=== PATIENT | female | born 1945 | race Caucasian/White ===

== ENCOUNTER 2019-04-24 19:56 | Inpatient (IN) ==
[2019-04-24] MEDS ORDERED: PANTOPRAZOLE 40 MG VIAL IV STA (20:24)
[2019-04-24] MEDS ORDERED: ONDANSETRON 4 MG/2 ML VIAL IV STA (20:24)
[2019-04-24] MEDS ORDERED: SODIUM CHLORIDE 0.9% 1,000 ML IV STA (20:24)
[2019-04-24 20:46] LABS: Basophils % 0.4 % (0.0-0.8); Eosinophils # 0.2 10*3/uL (0.0-0.87); Eosinophils % 2.3 % (0.00-10.9); Hematocrit 25.7 VOL% (35.7-47.0); Hemoglobin 7.5 GM/DL (12.0-16.0); Immature Granulocytes % 0.6 %; Immature Granulocytes Absolute 0.04 #; Lymphocytes # 1.1 10*3/uL (1.4-4.0); Mean Corpuscular HGB Conc 29.2 GM/DL (32-36); Mean Corpuscular Volume 87.1 FL (87-102); Mean Platelet Volume 8.7 FL (9.6-12.0); Monocytes % 6.8 % (1.7-12.7); Neutrophils % 74.9 % (38.7-73.9); Platelet Count 231 T/CUMM (130-400); Red Blood Count 2.95 MC/CUMM (3.8-5.5); Red Cell Distribution Width 18.3 % (9.3-17.3); White Blood Count 7.1 T/CUMM (4-12)
[2019-04-24 20:58] LABS: PT Patient Result 11.2 SECS (9.6-12.2); Partial Thromboplastin Time 28.6 SECS (20.8-36.0)
[2019-04-24 21:15] LABS: Alanine Aminotransferase < 6 U/L (13-56); Alkaline Phosphatase 140 U/L (45-117); Aspartate Amino Transferase 4 U/L (0-37); Bilirubin,Total < 0.39 MG/DL (0.2-1.0); Blood Urea Nitrogen 43 MG/DL (7-18); Calcium 7.8 MG/DL (8.5-10.1); Estimated Glom Filtration Rate 25 ML/MIN; Glucose 134 MG/DL (74-106); Osmolality,Calculated 293.3 MOS/KG (273-304); Total Protein 5.5 G/DL (6.4-8.3); Troponin I < 0.015 NG/ML (0.00-0.045)
[2019-04-24 22:13] LABS: Apearance,Urine CLOUDY (Clear); Bacteria,Urine Many /HPF (Few); Bilirubin,Urine Negative (Negative); Blood, Urine Large mg/dL (Negative); Glucose,Urine (UA) Negative (Negative); Ketones,Urine Negative (Negative); Nitrite,Urine Positive (Negative); Protein,Urine 100 MG/DL; RBC,Urine 134 /HPF (0-4); Urine Color Yellow (Yellow); Urine Specific Gravity 1.013 (1.001-1.035); Urine Urobilinogen < 2.0 EU/DL (0.2-1.0); WBC,Urine 2583 /HPF (0-6)
[2019-04-24] MEDS ORDERED: DOXYCYCLINE HYCLATE INJ 100 MG in SODIUM CHLORIDE 0.9% 100 ML IV STA (22:19)
[2019-04-25] MEDS ORDERED: ONDANSETRON 4 MG/2 ML VIAL IV PRN (02:38)
[2019-04-25] MEDS ORDERED: SODIUM CHLORIDE 0.9% 1,000 ML IV PRN (02:38)
[2019-04-25 05:56] LABS: Alanine Aminotransferase < 6 U/L (13-56); Albumin 1.9 G/DL (3.4-5.0); Alkaline Phosphatase 132 U/L (45-117); Aspartate Amino Transferase 6 U/L (0-37); Bilirubin,Total < 0.39 MG/DL (0.2-1.0); Blood Urea Nitrogen 34 MG/DL (7-18); Calcium 7.9 MG/DL (8.5-10.1); Estimated Glom Filtration Rate 30 ML/MIN; Glucose 105 MG/DL (74-106); Osmolality,Calculated 299.4 MOS/KG (273-304); Total Protein 5.5 G/DL (6.4-8.3)
[2019-04-25] MEDS: PANTOPRAZOLE 40 MG TABLET PO SCH (09:57)
[2019-04-25] MEDS: DOXYCYCLINE HYCLATE INJ 100 MG in SODIUM CHLORIDE 0.9% 100 ML IV SCH ×2 (09:58→21:27)
[2019-04-26 07:19] LABS: Hematocrit 35.1 VOL% (35.7-47.0); Hemoglobin 10.7 GM/DL (12.0-16.0)
[2019-04-26 07:26] LABS: PT Patient Result 11.3 SECS (9.6-12.2)
[2019-04-26] MEDS ORDERED: LACTATED RINGERS 1,000 ML IV SCH (08:00)
[2019-04-26] MEDS ORDERED: MORPHINE 4 MG/1 ML VIAL IV ONE (08:54)
[2019-04-26] MEDS: PANTOPRAZOLE 40 MG TABLET PO SCH (09:08)
[2019-04-26] MEDS ORDERED: PROPOFOL 200 MG/20 ML VIAL IV ONE (10:00)
[2019-04-26] MEDS ORDERED: LIDOCAINE 2% 5 ML VIAL ONE (10:00)
[2019-04-26] MEDS: DOXYCYCLINE HYCLATE INJ 100 MG in SODIUM CHLORIDE 0.9% 100 ML IV SCH (13:29)
[2019-04-26 15:39] VITALS: BP 156/86
== END 2019-04-26 17:23 | DRG 394 ==
LOC: EDUNIT# → EDBD → N.ED 19:56 → N.EDINP 04-25 02:39 → N.3E 04-25 03:15
PROVIDERS: ADMIT Internal Medicine; ATTEND Internal Medicine

== ENCOUNTER 2019-05-22 08:51 | Inpatient (IN) ==
[2019-05-22] MEDS ORDERED: NALOXONE 0.4 MG/ML VIAL ONE (09:12)
[2019-05-22] MEDS ORDERED: NALOXONE 0.4 MG/ML VIAL IV STA ×2 (09:17→10:05)
[2019-05-22] MEDS ORDERED: SODIUM CHLORIDE 0.9% 1,000 ML IV STA (09:27)
[2019-05-22 09:56] LABS: Basophils % 0.2 % (0.0-0.8); Eosinophils # 0.1 10*3/uL (0.0-0.87); Eosinophils % 0.8 % (0.00-10.9); Hematocrit 31.4 VOL% (35.7-47.0); Hemoglobin 9.6 GM/DL (12.0-16.0); Immature Granulocytes % 0.7 %; Lymphocytes # 1.3 10*3/uL (1.4-4.0); Lymphocytes % 9.3 % (21.3-54.2); Mean Corpuscular HGB Conc 30.6 GM/DL (32-36); Mean Corpuscular Volume 85.8 FL (87-102); Mean Platelet Volume 9.5 FL (9.6-12.0); Monocytes % 3.4 % (1.7-12.7); Neutrophils % 85.6 % (38.7-73.9); Platelet Count 204 T/CUMM (130-400); Red Blood Count 3.66 MC/CUMM (3.8-5.5); Red Cell Distribution Width 18.5 % (9.3-17.3); White Blood Count 13.9 T/CUMM (4-12)
[2019-05-22 10:19] LABS: Alanine Aminotransferase < 6 U/L (13-56); Albumin 1.9 G/DL (3.4-5.0); Alkaline Phosphatase 149 U/L (45-117); Aspartate Amino Transferase 12 U/L (0-37); Blood Urea Nitrogen 82 MG/DL (7-18); Calcium 7.8 MG/DL (8.5-10.1); Estimated Glom Filtration Rate 13 ML/MIN; Glucose 147 MG/DL (74-106); Osmolality,Calculated 300.8 MOS/KG (273-304); Total Protein 6.1 G/DL (6.4-8.3)
[2019-05-22 10:33] LABS: Apearance,Urine CLOUDY (Clear); Bacteria,Urine Many /HPF (Few); Bilirubin,Urine Negative (Negative); Blood, Urine Moderate mg/dL (Negative); Glucose,Urine (UA) Negative (Negative); Ketones,Urine Negative (Negative); Nitrite,Urine Negative (Negative); Protein,Urine 100 MG/DL; RBC,Urine 34 /HPF (0-4); Urine Specific Gravity 1.013 (1.001-1.035); Urine Urobilinogen < 2.0 EU/DL (0.2-1.0); WBC,Urine 1350 /HPF (0-6)
[2019-05-22 10:34] LABS: Urine Color Dark yellow (Yellow)
[2019-05-22 11:05] LABS: Barbiturates Screen,Urine Negative (Negative); Benzodiazepines Screen,Urine Negative (Negative); Cannabinoid Screen,Urine Negative (Negative); Opiate Screen,Urine Positive (Negative); Phencyclidine Screen,Urine Negative (Negative)
[2019-05-22] MEDS ORDERED: LACTULOSE 20 GM/30 ML UDCUP PO PRN (11:36)
[2019-05-22] MEDS ORDERED: cefTRIAXone 1,000 MG VIAL ONE (11:47)
[2019-05-22] MEDS ORDERED: SODIUM CHLORIDE 0.9% 100 ML IV ONE (11:48)
[2019-05-22] MEDS: cefTRIAXone 1,000 MG in SYRINGE 1 EACH IV SCH (11:56)
[2019-05-22 12:05] LABS: Risk Ratio 4.38; Thyroid Stimulating Hormone 1.11 uIU/ml (0.358-3.74); VLDL CHOLESTEROL 51.8 MG/DL
[2019-05-22] MEDS: SODIUM CHLORIDE 0.9% 1,000 ML IV SCH ×2 (15:00→23:00)
[2019-05-22] MEDS ORDERED: MAGNESIUM SULF RIDER 4 GM in PREMIX 1 EACH IV PRN (15:13)
[2019-05-22] MEDS ORDERED: MAGNESIUM SULF RIDER 2 GM in PREMIX 1 EACH IV PRN (15:13)
[2019-05-22] MEDS ORDERED: SODIUM CHLORIDE 0.9% 1,000 ML IV ONE (15:24)
[2019-05-22] MEDS ORDERED: ENOXAPARIN 30 MG/0.3 ML SYRINGE SUBCUT SCH (17:00)
[2019-05-22] MEDS: rOPINIRole 1 MG TABLET PO SCH (17:04)
[2019-05-22] MEDS ORDERED: NOREPINEPHRINE 8 MG in SODIUM CHLORIDE 0.9% 242 ML IV PRN (17:09)
[2019-05-22] MEDS: CARBIDOPA/LEVODOPA 25-250 MG TABLET PO SCH ×2 (18:11→21:40)
[2019-05-22] MEDS ORDERED: NOREPINEPHRINE 4 MG/4 ML VIAL IV ONE (18:52)
[2019-05-22] MEDS: OXYBUTYNIN 5 MG TABLET PO SCH (20:37)
[2019-05-22] MEDS: DICYCLOMINE 10 MG CAPSULE PO SCH (20:37)
[2019-05-22] MEDS: MEMANTINE 10 MG TABLET PO SCH (20:37)
[2019-05-22] MEDS: DOCUSATE SODIUM 100 MG CAPSULE PO SCH (20:37)
[2019-05-22] MEDS: buPROPion 75 MG TABLET PO SCH (20:38)
[2019-05-22] MEDS: BROMOCRIPTINE 2.5 MG TABLET PO SCH (20:38)
[2019-05-22] MEDS: PEG PROPYLENE GLYCOL BOTH EYES SCH (20:38)
[2019-05-23] MEDS: rOPINIRole 1 MG TABLET PO SCH ×3 (01:42→17:31)
[2019-05-23 05:06] LABS: Basophils % 0.2 % (0.0-0.8); Eosinophils # 0.2 10*3/uL (0.0-0.87); Eosinophils % 1.4 % (0.00-10.9); Hematocrit 31.6 VOL% (35.7-47.0); Hemoglobin 9.5 GM/DL (12.0-16.0); Immature Granulocytes % 0.5 %; Immature Granulocytes Absolute 0.07 #; Lymphocytes # 0.8 10*3/uL (1.4-4.0); Lymphocytes % 6.2 % (21.3-54.2); Mean Corpuscular HGB Conc 30.1 GM/DL (32-36); Mean Corpuscular Volume 87.8 FL (87-102); Mean Platelet Volume 9.6 FL (9.6-12.0); Monocytes % 2.6 % (1.7-12.7); Neutrophils % 89.1 % (38.7-73.9); Platelet Count 214 T/CUMM (130-400); Red Cell Distribution Width 19.4 % (9.3-17.3); White Blood Count 12.8 T/CUMM (4-12)
[2019-05-23 05:21] LABS: Calcium 7.2 MG/DL (8.5-10.1); Osmolality,Calculated 302.6 MOS/KG (273-304)
[2019-05-23] MEDS: BROMOCRIPTINE 2.5 MG TABLET PO SCH ×2 (09:06→15:43)
[2019-05-23] MEDS: SODIUM CHLORIDE 0.9% 1,000 ML IV SCH (09:13)
[2019-05-23] MEDS ORDERED: SODIUM CHLORIDE 0.9% 500 ML IV ONE (09:41)
[2019-05-23] MEDS: PANTOPRAZOLE 40 MG TABLET PO SCH (09:43)
[2019-05-23] MEDS: OXYBUTYNIN 5 MG TABLET PO SCH ×2 (09:43→20:03)
[2019-05-23] MEDS: POLYVINYL ALCOHOL 1.4% OPH SOLN 15 ML BOTTLE BOTH EYES PRN (09:43)
[2019-05-23] MEDS: CETIRIZINE 10 MG TABLET PO SCH (09:43)
[2019-05-23] MEDS: MEMANTINE 10 MG TABLET PO SCH ×2 (09:43→20:03)
[2019-05-23] MEDS: CALCIUM (CITRATE)/VITAMIN D 200 MG-125 UNIT TABLET PO SCH (09:43)
[2019-05-23] MEDS: LEVOTHYROXINE 150 MCG TABLET PO SCH (09:43)
[2019-05-23] MEDS: DONEPEZIL 10 MG TABLET PO SCH (09:43)
[2019-05-23] MEDS: DICYCLOMINE 10 MG CAPSULE PO SCH ×3 (09:43→20:03)
[2019-05-23] MEDS: CARBIDOPA/LEVODOPA 25-250 MG TABLET PO SCH ×4 (09:43→20:03)
[2019-05-23] MEDS: buPROPion 75 MG TABLET PO SCH ×2 (09:43→20:04)
[2019-05-23] MEDS: FLUoxetine 10 MG CAPSULE PO SCH (09:43)
[2019-05-23] MEDS: PEG PROPYLENE GLYCOL BOTH EYES SCH ×2 (09:45→20:09)
[2019-05-23] MEDS: SODIUM CHLORIDE 0.45% 1,000 ML IV SCH ×2 (10:05→18:05)
[2019-05-23] MEDS: cefTRIAXone 1,000 MG in SYRINGE 1 EACH IV SCH (12:58)
[2019-05-23] MEDS: ENOXAPARIN 40 MG/0.4 ML SYRINGE SUBCUT SCH (17:31)
[2019-05-23] MEDS: DESITIN 4OZ/NYSTATIN 15 GRAM MIXTURE PASTE TOP SCH (20:04)
[2019-05-23] MEDS: DOCUSATE SODIUM 100 MG CAPSULE PO SCH (20:04)
[2019-05-23] MEDS: ACETAMINOPHEN 325 MG TABLET PO PRN (20:07)
[2019-05-24] MEDS: rOPINIRole 1 MG TABLET PO SCH ×3 (00:37→17:20)
[2019-05-24] MEDS: SODIUM CHLORIDE 0.45% 1,000 ML IV SCH ×3 (02:13→17:45)
[2019-05-24 02:15] LABS: Basophils % 0.4 % (0.0-0.8); Eosinophils # 0.2 10*3/uL (0.0-0.87); Eosinophils % 1.8 % (0.00-10.9); Hematocrit 29.5 VOL% (35.7-47.0); Immature Granulocytes % 0.6 %; Immature Granulocytes Absolute 0.05 #; Lymphocytes # 1.3 10*3/uL (1.4-4.0); Lymphocytes % 14.4 % (21.3-54.2); Mean Corpuscular HGB Conc 30.5 GM/DL (32-36); Mean Corpuscular Volume 85.3 FL (87-102); Neutrophils % 78.8 % (38.7-73.9); Platelet Count 203 T/CUMM (130-400); Red Blood Count 3.46 MC/CUMM (3.8-5.5); Red Cell Distribution Width 19.1 % (9.3-17.3)
[2019-05-24 02:29] LABS: Calcium 7.3 MG/DL (8.5-10.1); Osmolality,Calculated 283.3 MOS/KG (273-304)
[2019-05-24] MEDS: LEVOTHYROXINE 150 MCG TABLET PO SCH (06:29)
[2019-05-24] MEDS: MEMANTINE 10 MG TABLET PO SCH ×2 (08:22→20:27)
[2019-05-24] MEDS: DICYCLOMINE 10 MG CAPSULE PO SCH ×3 (08:22→20:28)
[2019-05-24] MEDS: DONEPEZIL 10 MG TABLET PO SCH (08:22)
[2019-05-24] MEDS: OXYBUTYNIN 5 MG TABLET PO SCH ×2 (08:22→20:27)
[2019-05-24] MEDS: CALCIUM (CITRATE)/VITAMIN D 200 MG-125 UNIT TABLET PO SCH (08:22)
[2019-05-24] MEDS: buPROPion 75 MG TABLET PO SCH ×2 (08:23→20:27)
[2019-05-24] MEDS: CETIRIZINE 10 MG TABLET PO SCH (08:23)
[2019-05-24] MEDS: FLUoxetine 10 MG CAPSULE PO SCH (08:23)
[2019-05-24] MEDS: PEG PROPYLENE GLYCOL BOTH EYES SCH ×2 (08:23→20:04)
[2019-05-24] MEDS: CARBIDOPA/LEVODOPA 25-250 MG TABLET PO SCH ×4 (08:23→20:27)
[2019-05-24] MEDS: DESITIN 4OZ/NYSTATIN 15 GRAM MIXTURE PASTE TOP SCH ×2 (08:23→20:29)
[2019-05-24] MEDS: PANTOPRAZOLE 40 MG TABLET PO SCH (08:23)
[2019-05-24] MEDS: POTASSIUM CHLORIDE 20 MEQ/15 ML UDCUP PER TUBE PRN ×2 (12:40→14:28)
[2019-05-24] MEDS: cefTRIAXone 1,000 MG in SYRINGE 1 EACH IV SCH (12:40)
[2019-05-24] MEDS: ENOXAPARIN 40 MG/0.4 ML SYRINGE SUBCUT SCH (17:20)
[2019-05-24] MEDS: DOCUSATE SODIUM 100 MG CAPSULE PO SCH (20:03)
[2019-05-24] MEDS: traZODone 50 MG TABLET PO SCH (20:27)
[2019-05-24] MEDS: ONDANSETRON 4 MG/2 ML VIAL IV PRN (20:30)
[2019-05-24] MEDS: ACETAMINOPHEN 325 MG TABLET PO PRN (20:41)
[2019-05-25] MEDS: rOPINIRole 1 MG TABLET PO SCH ×3 (01:33→18:38)
[2019-05-25] MEDS: ONDANSETRON 4 MG/2 ML VIAL IV PRN ×3 (01:40→13:01)
[2019-05-25 05:25] LABS: Basophils % 0.4 % (0.0-0.8); Eosinophils # 0.1 10*3/uL (0.0-0.87); Eosinophils % 1.6 % (0.00-10.9); Hematocrit 31.4 VOL% (35.7-47.0); Hemoglobin 9.9 GM/DL (12.0-16.0); Immature Granulocytes % 0.5 %; Immature Granulocytes Absolute 0.04 #; Lymphocytes % 13.3 % (21.3-54.2); Mean Corpuscular HGB Conc 31.5 GM/DL (32-36); Mean Corpuscular Volume 83.3 FL (87-102); Mean Platelet Volume 8.8 FL (9.6-12.0); Monocytes % 4.7 % (1.7-12.7); Neutrophils % 79.5 % (38.7-73.9); Platelet Count 226 T/CUMM (130-400); Red Blood Count 3.77 MC/CUMM (3.8-5.5); Red Cell Distribution Width 18.8 % (9.3-17.3); White Blood Count 7.7 T/CUMM (4-12)
[2019-05-25 06:06] LABS: Calcium 7.4 MG/DL (8.5-10.1); Osmolality,Calculated 270.8 MOS/KG (273-304)
[2019-05-25] MEDS: LEVOTHYROXINE 150 MCG TABLET PO SCH (06:32)
[2019-05-25] MEDS: POTASSIUM CHLORIDE 20 MEQ/15 ML UDCUP PER TUBE PRN ×2 (07:14→09:36)
[2019-05-25] MEDS: SODIUM CHLORIDE 0.45% 1,000 ML IV SCH ×3 (07:15→18:36)
[2019-05-25] MEDS: CALCIUM (CITRATE)/VITAMIN D 200 MG-125 UNIT TABLET PO SCH (09:28)
[2019-05-25] MEDS: MEMANTINE 10 MG TABLET PO SCH ×2 (09:29→20:23)
[2019-05-25] MEDS: traZODone 50 MG TABLET PO SCH ×2 (09:29→20:23)
[2019-05-25] MEDS: DICYCLOMINE 10 MG CAPSULE PO SCH ×3 (09:30→20:23)
[2019-05-25] MEDS: OXYBUTYNIN 5 MG TABLET PO SCH ×2 (09:31→20:22)
[2019-05-25] MEDS: buPROPion 75 MG TABLET PO SCH ×2 (09:32→20:23)
[2019-05-25] MEDS: PANTOPRAZOLE 40 MG TABLET PO SCH (09:33)
[2019-05-25] MEDS: CARBIDOPA/LEVODOPA 25-250 MG TABLET PO SCH ×4 (09:33→20:23)
[2019-05-25] MEDS: DONEPEZIL 10 MG TABLET PO SCH (09:34)
[2019-05-25] MEDS: CETIRIZINE 10 MG TABLET PO SCH (09:34)
[2019-05-25] MEDS: PEG PROPYLENE GLYCOL BOTH EYES SCH ×2 (10:07→22:03)
[2019-05-25] MEDS: FLUoxetine 10 MG CAPSULE PO SCH (10:16)
[2019-05-25] MEDS: DESITIN 4OZ/NYSTATIN 15 GRAM MIXTURE PASTE TOP SCH ×2 (10:17→20:49)
[2019-05-25] MEDS: cefTRIAXone 1,000 MG in SYRINGE 1 EACH IV SCH (12:45)
[2019-05-25] MEDS: ACETAMINOPHEN 325 MG TABLET PO PRN (12:59)
[2019-05-25] MEDS: ENOXAPARIN 40 MG/0.4 ML SYRINGE SUBCUT SCH (18:38)
[2019-05-25] MEDS: POTASSIUM CHLORIDE 20 MEQ TABLET PO PRN (18:38)
[2019-05-25] MEDS: DOCUSATE SODIUM 100 MG CAPSULE PO SCH (20:22)
[2019-05-25] MEDS: POTASSIUM CHLORIDE 20 MEQ TABLET PO SCH (20:23)
[2019-05-25] MEDS: POLYVINYL ALCOHOL 1.4% OPH SOLN 15 ML BOTTLE BOTH EYES PRN (20:25)
[2019-05-26] MEDS: rOPINIRole 1 MG TABLET PO SCH ×2 (00:29→08:49)
[2019-05-26] MEDS: ONDANSETRON 4 MG/2 ML VIAL IV PRN ×2 (00:30→08:50)
[2019-05-26 05:10] LABS: Basophils % 0.2 % (0.0-0.8); Eosinophils # 0.1 10*3/uL (0.0-0.87); Eosinophils % 2.2 % (0.00-10.9); Hematocrit 28.4 VOL% (35.7-47.0); Immature Granulocytes % 0.5 %; Immature Granulocytes Absolute 0.03 #; Lymphocytes # 0.9 10*3/uL (1.4-4.0); Lymphocytes % 15.5 % (21.3-54.2); Mean Corpuscular HGB Conc 31.7 GM/DL (32-36); Mean Platelet Volume 9.1 FL (9.6-12.0); Monocytes % 5.3 % (1.7-12.7); Neutrophils % 76.3 % (38.7-73.9); Platelet Count 208 T/CUMM (130-400); Red Blood Count 3.42 MC/CUMM (3.8-5.5); White Blood Count 5.5 T/CUMM (4-12)
[2019-05-26 05:28] LABS: Osmolality,Calculated 270.7 MOS/KG (273-304)
[2019-05-26] MEDS: POTASSIUM CHLORIDE 20 MEQ TABLET PO PRN (07:00)
[2019-05-26] MEDS: LEVOTHYROXINE 150 MCG TABLET PO SCH (07:00)
[2019-05-26] MEDS: SODIUM CHLORIDE 0.45% 1,000 ML IV SCH ×2 (07:07→11:15)
[2019-05-26] MEDS: OXYBUTYNIN 5 MG TABLET PO SCH (08:49)
[2019-05-26] MEDS: CETIRIZINE 10 MG TABLET PO SCH (08:49)
[2019-05-26] MEDS: DONEPEZIL 10 MG TABLET PO SCH (08:49)
[2019-05-26] MEDS: POTASSIUM CHLORIDE 20 MEQ TABLET PO SCH (08:49)
[2019-05-26] MEDS: MEMANTINE 10 MG TABLET PO SCH (08:49)
[2019-05-26] MEDS: buPROPion 75 MG TABLET PO SCH (08:49)
[2019-05-26] MEDS: CALCIUM (CITRATE)/VITAMIN D 200 MG-125 UNIT TABLET PO SCH (08:49)
[2019-05-26] MEDS: FLUoxetine 10 MG CAPSULE PO SCH (08:49)
[2019-05-26] MEDS: PANTOPRAZOLE 40 MG TABLET PO SCH (08:50)
[2019-05-26] MEDS: traZODone 50 MG TABLET PO SCH (08:50)
[2019-05-26] MEDS: DICYCLOMINE 10 MG CAPSULE PO SCH (08:50)
[2019-05-26] MEDS: CARBIDOPA/LEVODOPA 25-250 MG TABLET PO SCH ×2 (08:50→12:43)
[2019-05-26] MEDS: DESITIN 4OZ/NYSTATIN 15 GRAM MIXTURE PASTE TOP SCH (11:15)
[2019-05-26] MEDS: PEG PROPYLENE GLYCOL BOTH EYES SCH (11:15)
[2019-05-26] MEDS: cefTRIAXone 1,000 MG in SYRINGE 1 EACH IV SCH (12:43)
[2019-05-26 13:15] VITALS: BP 127/75
[2019-05-26] MEDS ORDERED: METHENAMINE HIPPURATE 1 GM TABLET PO SCH (21:00)
[2019-05-26] MEDS ORDERED: DOXYCYCLINE HYCLATE 100 MG CAPSULE PO SCH (21:00)
== END 2019-05-26 14:15 | DRG 871 ==
LOC: EDBD → EDUNIT# → N.ED 08:51 → SUATTDRO 11:36 → N.EDINP 11:36 → N.CC 14:55 → N.4E 05-24 21:12
PROVIDERS: ADMIT Internal Medicine; ATTEND Hospitalist

== ENCOUNTER 2019-07-10 13:43 | Inpatient (IN) ==
[2019-07-10] MEDS ORDERED: cefTRIAXone 1,000 MG in SODIUM CHLORIDE 0.9% 100 ML IV STA (14:08)
[2019-07-10] MEDS ORDERED: SODIUM CHLORIDE 0.9% 500 ML IV STA (14:08)
[2019-07-10 14:16] LABS: Basophils % 0.2 % (0.0-0.8); Eosinophils # 0.1 10*3/uL (0.0-0.87); Eosinophils % 0.9 % (0.00-10.9); Hematocrit 29.7 VOL% (35.7-47.0); Hemoglobin 9.1 GM/DL (12.0-16.0); Immature Granulocytes % 0.9 %; Immature Granulocytes Absolute 0.08 #; Lymphocytes # 0.9 10*3/uL (1.4-4.0); Mean Corpuscular HGB Conc 30.6 GM/DL (32-36); Mean Corpuscular Volume 96.1 FL (87-102); Mean Platelet Volume 8.7 FL (9.6-12.0); Monocytes % 5.1 % (1.7-12.7); Neutrophils % 82.9 % (38.7-73.9); Platelet Count 330 T/CUMM (130-400); Red Blood Count 3.09 MC/CUMM (3.8-5.5); Red Cell Distribution Width 17.8 % (9.3-17.3)
[2019-07-10 14:28] LABS: Alanine Aminotransferase < 6 U/L (13-56); Albumin 1.9 G/DL (3.4-5.0); Alkaline Phosphatase 187 U/L (45-117); Aspartate Amino Transferase 7 U/L (0-37); Blood Urea Nitrogen 79 MG/DL (7-18); Calcium 8.2 MG/DL (8.5-10.1); Estimated Glom Filtration Rate 16 ML/MIN; Glucose 94 MG/DL (74-106); Total Protein 6.8 G/DL (6.4-8.3)
[2019-07-10 16:11] LABS: Apearance,Urine CLOUDY (Clear); Bacteria,Urine Moderate /HPF (Few); Bilirubin,Urine Negative (Negative); Blood, Urine Moderate mg/dL (Negative); Glucose,Urine (UA) Negative (Negative); Ketones,Urine Negative (Negative); Nitrite,Urine Negative (Negative); Protein,Urine 30 MG/DL; RBC,Urine 29 /HPF (0-4); Urine Color Amber (Yellow); Urine Urobilinogen < 2.0 EU/DL (0.2-1.0); WBC,Urine 1749 /HPF (0-6)
[2019-07-10] MEDS ORDERED: ONDANSETRON 4 MG/2 ML VIAL IV PRN (16:41)
[2019-07-10 17:53] LABS: Band Neutrophils 2 % (0-10); Lymphocytes 10 % (20-55); Platelet Estimate Adequate; Segmented Neutrophils 85 % (50-85); Total Cells Counted 100
[2019-07-10] MEDS: SODIUM CHLORIDE 0.9% 1,000 ML IV SCH (18:09)
[2019-07-10 18:31] LABS: Thyroid Stimulating Hormone 0.039 uIU/ml (0.358-3.74)
[2019-07-10] MEDS: ENOXAPARIN 30 MG/0.3 ML SYRINGE SUBCUT SCH (22:04)
[2019-07-11] MEDS: SODIUM CHLORIDE 0.9% 1,000 ML IV SCH (04:33)
[2019-07-11 04:51] LABS: Basophils % 0.4 % (0.0-0.8); Eosinophils # 0.1 10*3/uL (0.0-0.87); Eosinophils % 1.1 % (0.00-10.9); Hematocrit 30.1 VOL% (35.7-47.0); Hemoglobin 9.2 GM/DL (12.0-16.0); Immature Granulocytes % 1.3 %; Lymphocytes # 1.1 10*3/uL (1.4-4.0); Mean Corpuscular HGB Conc 30.6 GM/DL (32-36); Mean Corpuscular Volume 96.2 FL (87-102); Mean Platelet Volume 8.7 FL (9.6-12.0); Monocytes % 5.4 % (1.7-12.7); Neutrophils % 77.8 % (38.7-73.9); Platelet Count 311 T/CUMM (130-400); Red Blood Count 3.13 MC/CUMM (3.8-5.5); Red Cell Distribution Width 18.1 % (9.3-17.3); White Blood Count 7.6 T/CUMM (4-12)
[2019-07-11 05:21] LABS: Calcium 8.6 MG/DL (8.5-10.1)
[2019-07-11] MEDS: PANTOPRAZOLE 40 MG VIAL IV SCH (11:03)
[2019-07-11] MEDS: cefTRIAXone 1,000 MG in SYRINGE 1 EACH IV SCH (15:39)
[2019-07-11 16:58] LABS: Risk Ratio 5.86; VLDL CHOLESTEROL 48.2 MG/DL
[2019-07-11] MEDS: ATORVASTATIN 40 MG TABLET PO SCH (20:27)
[2019-07-11] MEDS: ENOXAPARIN 30 MG/0.3 ML SYRINGE SUBCUT SCH (20:27)
[2019-07-12 05:47] LABS: Basophils # 0.1 10*3/uL (0.0-0.2); Basophils % 0.4 % (0.0-0.8); Hematocrit 40.4 VOL% (35.7-47.0); Hemoglobin 12.4 GM/DL (12.0-16.0); Immature Granulocytes % 2.4 %; Immature Granulocytes Absolute 0.32 #; Lymphocytes # 0.6 10*3/uL (1.4-4.0); Lymphocytes % 4.6 % (21.3-54.2); Mean Corpuscular HGB Conc 30.7 GM/DL (32-36); Mean Platelet Volume 8.9 FL (9.6-12.0); Monocytes % 3.1 % (1.7-12.7); Neutrophils % 89.5 % (38.7-73.9); Platelet Count 337 T/CUMM (130-400); Red Blood Count 4.21 MC/CUMM (3.8-5.5); Red Cell Distribution Width 17.5 % (9.3-17.3); White Blood Count 13.4 T/CUMM (4-12)
[2019-07-12 06:08] LABS: Band Neutrophils 1 % (0-10); Lymphocytes 3 % (20-55); Myelocytes 1 %; Segmented Neutrophils 92 % (50-85)
[2019-07-12 06:10] LABS: Calcium 9.6 MG/DL (8.5-10.1); Osmolality,Calculated 310.4 MOS/KG (273-304); Platelet Estimate Normal; Polychromasia Few; Total Cells Counted 100
[2019-07-12] MEDS ORDERED: LEVOTHYROXINE 150 MCG TABLET PO SCH (09:00)
[2019-07-12] MEDS: PANTOPRAZOLE 40 MG VIAL IV SCH (10:42)
[2019-07-12] MEDS ORDERED: METOPROLOL TARTRATE 5 MG/5 ML VIAL IV ONE (11:54)
[2019-07-12] MEDS: cefTRIAXone 1,000 MG in SYRINGE 1 EACH IV SCH (13:07)
[2019-07-12] MEDS ORDERED: POLYVINYL ALCOHOL 1.4% OPH SOLN 15 ML BOTTLE BOTH EYES PRN (16:40)
[2019-07-12] MEDS ORDERED: PEG PROPYLENE GLYCOL BOTH EYES SCH (21:00)
[2019-07-12] MEDS: ENOXAPARIN 30 MG/0.3 ML SYRINGE SUBCUT SCH (21:07)
[2019-07-12] MEDS: METOPROLOL TARTRATE 25 MG TABLET NG SCH (21:08)
[2019-07-12] MEDS: ATORVASTATIN 40 MG TABLET PO SCH (21:08)
[2019-07-12] MEDS: DESITIN 4OZ/NYSTATIN 15 GRAM MIXTURE PASTE TOP SCH (21:26)
[2019-07-13 06:12] LABS: Basophils % 0.2 % (0.0-0.8); Hematocrit 42.3 VOL% (35.7-47.0); Hemoglobin 12.9 GM/DL (12.0-16.0); Immature Granulocytes % 1.9 %; Immature Granulocytes Absolute 0.31 #; Lymphocytes # 1.4 10*3/uL (1.4-4.0); Lymphocytes % 8.8 % (21.3-54.2); Mean Corpuscular HGB Conc 30.5 GM/DL (32-36); Mean Corpuscular Volume 97.2 FL (87-102); Mean Platelet Volume 10.2 FL (9.6-12.0); Monocytes % 6.8 % (1.7-12.7); Neutrophils % 82.3 % (38.7-73.9); Platelet Count 236 T/CUMM (130-400); Red Blood Count 4.35 MC/CUMM (3.8-5.5); Red Cell Distribution Width 17.6 % (9.3-17.3); White Blood Count 16.2 T/CUMM (4-12)
[2019-07-13 06:23] LABS: Calcium 9.7 MG/DL (8.5-10.1); Osmolality,Calculated 340.6 MOS/KG (273-304)
[2019-07-13] MEDS: SODIUM CHLORIDE 0.45% 1,000 ML IV SCH ×2 (08:10→18:07)
[2019-07-13] MEDS: PANTOPRAZOLE 40 MG VIAL IV SCH (08:11)
[2019-07-13] MEDS: METOPROLOL TARTRATE 25 MG TABLET NG SCH ×2 (08:14→21:11)
[2019-07-13] MEDS ORDERED: ACETAMINOPHEN 325 MG SUPP RECTAL PRN (10:02)
[2019-07-13] MEDS: DESITIN 4OZ/NYSTATIN 15 GRAM MIXTURE PASTE TOP SCH ×2 (10:23→21:11)
[2019-07-13] MEDS ORDERED: ACETAMINOPHEN 650 MG SUPP RECTAL PRN (10:30)
[2019-07-13] MEDS ORDERED: GENTAMICIN INJ 160 MG in SODIUM CHLORIDE 0.9% 100 ML IV PRN (16:50)
[2019-07-13] MEDS: cefTRIAXone 1,000 MG in SYRINGE 1 EACH IV SCH (17:00)
[2019-07-13] MEDS ORDERED: GENTAMICIN INJ 160 MG in SODIUM CHLORIDE 0.9% 100 ML IV ONE (18:00)
[2019-07-13] MEDS: ENOXAPARIN 30 MG/0.3 ML SYRINGE SUBCUT SCH (21:11)
[2019-07-13] MEDS: ATORVASTATIN 40 MG TABLET PO SCH (21:11)
[2019-07-14] MEDS: SODIUM CHLORIDE 0.45% 1,000 ML IV SCH ×2 (04:38→19:25)
[2019-07-14 08:47] LABS: Basophils # 0.1 10*3/uL (0.0-0.2); Basophils % 0.2 % (0.0-0.8); Hematocrit 35.4 VOL% (35.7-47.0); Immature Granulocytes % 1.1 %; Immature Granulocytes Absolute 0.26 #; Lymphocytes # 1.5 10*3/uL (1.4-4.0); Lymphocytes % 6.7 % (21.3-54.2); Mean Corpuscular HGB Conc 30.2 GM/DL (32-36); Mean Corpuscular Volume 98.3 FL (87-102); Mean Platelet Volume 10.4 FL (9.6-12.0); Monocytes % 4.5 % (1.7-12.7); Neutrophils % 87.5 % (38.7-73.9)
[2019-07-14 08:48] LABS: Hemoglobin 10.7 GM/DL (12.0-16.0); Platelet Count 143 T/CUMM (130-400); White Blood Count 23.1 T/CUMM (4-12)
[2019-07-14 09:02] LABS: Hypochromasia 1+; Lymphocytes 10 % (20-55); Segmented Neutrophils 87 % (50-85); Total Cells Counted 100
[2019-07-14 09:03] LABS: Calcium 7.7 MG/DL (8.5-10.1); Macrocytosis 1+; Osmolality,Calculated 337.7 MOS/KG (273-304)
[2019-07-14] MEDS: DESITIN 4OZ/NYSTATIN 15 GRAM MIXTURE PASTE TOP SCH ×3 (09:46→20:10)
[2019-07-14] MEDS: METOPROLOL TARTRATE 25 MG TABLET NG SCH (09:47)
[2019-07-14] MEDS: PANTOPRAZOLE 40 MG VIAL IV SCH (09:51)
[2019-07-14] MEDS ORDERED: PROMETHAZINE 25 MG/1 ML VIAL IM PRN (14:32)
[2019-07-14] MEDS ORDERED: POTASSIUM CHLORIDE 20 MEQ/15 ML UDCUP NG SCH (15:00)
[2019-07-15] MEDS: PANTOPRAZOLE 40 MG VIAL IV SCH (08:30)
[2019-07-15] MEDS: DESITIN 4OZ/NYSTATIN 15 GRAM MIXTURE PASTE TOP SCH (08:30)
[2019-07-15 11:42] VITALS: BP 125/84
== END 2019-07-15 16:01 | disposition hospice, inpatient (51) | DRG 64 ==
LOC: EDUNIT# → EDBD → N.ED 13:43 → SUATTDRO 16:27 → N.EDINP 16:27 → N.5E 17:53
PROVIDERS: ADMIT Internal Medicine; ATTEND Emergency Medicine